=== PATIENT | male | born 1940 | race Caucasian/White ===

== ENCOUNTER 2021-04-07 16:51 | Inpatient (IN) ==
[2021-04-08] MEDS ORDERED: Acetaminophen 325 MG TABLET PO PRN (16:28)
[2021-04-08] MEDS ORDERED: D5% in Water 1,000 ML IVC PRN (17:14)
[2021-04-08] MEDS ORDERED: *HR* Dextrose 50 % in Water (Syg) 50 ML SYRINGE IVP PRN (17:14)
[2021-04-08] MEDS ORDERED: Dextrose Gel 15 GM/37.5 ML TUBE PO PRN ×2 (17:14)
[2021-04-08] MEDS: Acetaminophen 325 MG TABLET PO PRN (19:41)
[2021-04-08] MEDS: Metoprolol XL (24 HR) Succ 25 MG TAB.ER.24H PO SCH (19:41)
[2021-04-08] MEDS: Apixaban 5 MG TABLET PO SCH (19:42)
[2021-04-08] MEDS: Doxycycline 100 MG CAPSULE PO SCH (19:42)
[2021-04-08] MEDS: Insulin LISPRO 300 UNITS/3 ML VIAL SUBQ SCH (19:42)
[2021-04-08] MEDS: Insulin DETEMIR 100 UNIT/ML X5UNITS SUBQ SCH (19:42)
[2021-04-08] MEDS ORDERED: Insulin DETEMIR 100 UNIT/ML per UNIT SUBQ ONE (21:00)
[2021-04-09 06:07] LABS: Basophils % 0.4 %; Eosinophils # 0.3 K/mcL (0.0-0.6); Eosinophils % 3.6 %; Hematocrit 38.9 % (37.5-50.1); Hemoglobin 12.8 g/dL (12.9-16.9); Immature Granulocytes % 0.6 % (0-4); Lymphocytes # 2.6 K/mcL (0.6-4.6); Lymphocytes % 30.6 %; Mean Corpuscular HGB Conc 32.9 g/dL (31.6-35.5); Mean Corpuscular Hemoglobin 28.9 pg (28.0-33.3); Mean Corpuscular Volume 87.8 fL (83.0-100.0); Mean Platelet Volume 10.4 fL (9.4-12.4); Monocytes # 0.6 K/mcL (0.0-1.3); Monocytes % 6.8 %; Neutrophils # 4.9 K/mcL (1.6-8.9); Platelet Count 239 K/mcL (140-400); Red Blood Count 4.43 M/mcL (4.19-5.50); Red Cell Distribution Width 14.6 % (11.5-14.5); White Blood Count 8.5 K/mcL (4.3-11.1)
[2021-04-09 06:21] LABS: Albumin 3.1 g/dL (3.5-5.7); Albumin/Globulin Ratio 0.8 (1.1-2.2); Bilirubin,Total 0.8 mg/dL (0.3-1.0); Calcium 8.9 mg/dL (8.6-10.3); Globulin 3.8 g/dL (2.4-3.5); Potassium 4.3 mEq/L (3.5-5.1); Total Protein 6.9 g/dL (6.4-8.9)
[2021-04-09] MEDS: Apixaban 5 MG TABLET PO SCH ×2 (08:51→21:41)
[2021-04-09] MEDS: Finasteride 5 MG TABLET PO SCH (08:51)
[2021-04-09] MEDS: Doxycycline 100 MG CAPSULE PO SCH ×2 (08:51→21:40)
[2021-04-09] MEDS: Insulin LISPRO 300 UNITS/3 ML VIAL SUBQ SCH ×4 (08:51→21:47)
[2021-04-09] MEDS: Metoprolol XL (24 HR) Succ 25 MG TAB.ER.24H PO SCH ×2 (08:52→22:02)
[2021-04-09] MEDS: amLODIPine 5 MG TABLET PO SCH (08:52)
[2021-04-09] MEDS: *HR* Amiodarone 200 MG TABLET PO SCH (08:52)
[2021-04-09] MEDS: lisinopriL 20 MG TABLET PO SCH (08:52)
[2021-04-09] MEDS: Magnesium Oxide 400 MG TABLET PO SCH (08:52)
[2021-04-09] MEDS: Aspirin Enteric Coated 81 MG Tablet PO SCH (08:52)
[2021-04-09] MEDS: Torsemide 20 MG TABLET PO SCH ×2 (08:52→16:37)
[2021-04-09] MEDS: Acetaminophen 325 MG TABLET PO PRN ×2 (09:03→20:11)
[2021-04-09] MEDS: Insulin DETEMIR 100 UNIT/ML X5UNITS SUBQ SCH ×2 (09:04→21:45)
[2021-04-09 10:09] LABS: Chol/HDL Ratio 4.6 (0-4.9)
[2021-04-09 18:15] LABS: Estimated Average Glucose 226 mg/dl; Hemoglobin A1C 9.5 %
[2021-04-09] MEDS: Benzonatate 100 MG CAPSULE PO PRN (23:31)
[2021-04-10] MEDS: Doxycycline 100 MG CAPSULE PO SCH ×2 (08:02→21:19)
[2021-04-10] MEDS: Magnesium Oxide 400 MG TABLET PO SCH (08:03)
[2021-04-10] MEDS: Torsemide 20 MG TABLET PO SCH ×2 (08:03→17:44)
[2021-04-10] MEDS: *HR* Amiodarone 200 MG TABLET PO SCH (08:03)
[2021-04-10] MEDS: Aspirin Enteric Coated 81 MG Tablet PO SCH (08:03)
[2021-04-10] MEDS: Finasteride 5 MG TABLET PO SCH (08:04)
[2021-04-10] MEDS: Apixaban 5 MG TABLET PO SCH ×2 (08:04→21:17)
[2021-04-10] MEDS: Metoprolol XL (24 HR) Succ 25 MG TAB.ER.24H PO SCH ×2 (08:04→21:18)
[2021-04-10] MEDS: Insulin LISPRO 300 UNITS/3 ML VIAL SUBQ SCH ×4 (08:05→21:20)
[2021-04-10] MEDS: amLODIPine 5 MG TABLET PO SCH (08:05)
[2021-04-10] MEDS: Benzonatate 100 MG CAPSULE PO PRN ×2 (08:29→21:17)
[2021-04-10] MEDS: Insulin DETEMIR 100 UNIT/ML X5UNITS SUBQ SCH ×2 (08:30→21:20)
[2021-04-10] MEDS: lisinopriL 20 MG TABLET PO SCH (10:19)
[2021-04-10] MEDS: Acetaminophen 325 MG TABLET PO PRN (21:18)
[2021-04-11 04:48] LABS: Hematocrit 37.9 % (37.5-50.1); Hemoglobin 12.3 g/dL (12.9-16.9); Mean Corpuscular HGB Conc 32.5 g/dL (31.6-35.5); Mean Corpuscular Hemoglobin 28.7 pg (28.0-33.3); Mean Corpuscular Volume 88.3 fL (83.0-100.0); Mean Platelet Volume 10.8 fL (9.4-12.4); Platelet Count 235 K/mcL (140-400); Red Blood Count 4.29 M/mcL (4.19-5.50); Red Cell Distribution Width 14.6 % (11.5-14.5); White Blood Count 6.6 K/mcL (4.3-11.1)
[2021-04-11 05:03] LABS: Albumin/Globulin Ratio 0.9 (1.1-2.2); Bilirubin,Total 0.6 mg/dL (0.3-1.0); Calcium 8.9 mg/dL (8.6-10.3); Globulin 3.5 g/dL (2.4-3.5); Magnesium 1.8 mg/dL (1.6-2.6); Potassium 4.5 mEq/L (3.5-5.1); Total Protein 6.5 g/dL (6.4-8.9)
[2021-04-11] MEDS: Insulin LISPRO 300 UNITS/3 ML VIAL SUBQ SCH ×4 (08:57→20:31)
[2021-04-11] MEDS: Insulin DETEMIR 100 UNIT/ML X5UNITS SUBQ SCH ×2 (08:58→20:31)
[2021-04-11] MEDS: Metoprolol XL (24 HR) Succ 25 MG TAB.ER.24H PO SCH ×2 (08:59→20:29)
[2021-04-11] MEDS: Apixaban 5 MG TABLET PO SCH ×2 (08:59→20:29)
[2021-04-11] MEDS: *HR* Amiodarone 200 MG TABLET PO SCH (09:00)
[2021-04-11] MEDS: Finasteride 5 MG TABLET PO SCH (09:00)
[2021-04-11] MEDS: Magnesium Oxide 400 MG TABLET PO SCH (09:00)
[2021-04-11] MEDS: Torsemide 20 MG TABLET PO SCH ×2 (09:00→18:31)
[2021-04-11] MEDS: Doxycycline 100 MG CAPSULE PO SCH ×2 (09:00→20:28)
[2021-04-11] MEDS: lisinopriL 20 MG TABLET PO SCH (09:01)
[2021-04-11] MEDS: Aspirin Enteric Coated 81 MG Tablet PO SCH (09:04)
[2021-04-11] MEDS: Benzonatate 100 MG CAPSULE PO PRN ×2 (09:16→18:31)
[2021-04-11] MEDS: amLODIPine 5 MG TABLET PO SCH (11:10)
[2021-04-11] MEDS: Acetaminophen 325 MG TABLET PO PRN (20:29)
[2021-04-12] MEDS: *HR* Amiodarone 200 MG TABLET PO SCH (09:11)
[2021-04-12] MEDS: Acetaminophen 325 MG TABLET PO PRN ×2 (09:11→21:22)
[2021-04-12] MEDS: Finasteride 5 MG TABLET PO SCH (09:11)
[2021-04-12] MEDS: Metoprolol XL (24 HR) Succ 25 MG TAB.ER.24H PO SCH ×2 (09:11→21:22)
[2021-04-12] MEDS: Magnesium Oxide 400 MG TABLET PO SCH (09:11)
[2021-04-12] MEDS: Aspirin Enteric Coated 81 MG Tablet PO SCH (09:11)
[2021-04-12] MEDS: amLODIPine 5 MG TABLET PO SCH (09:11)
[2021-04-12] MEDS: lisinopriL 20 MG TABLET PO SCH (09:11)
[2021-04-12] MEDS: Apixaban 5 MG TABLET PO SCH ×2 (09:11→21:22)
[2021-04-12] MEDS: Doxycycline 100 MG CAPSULE PO SCH ×2 (09:12→21:22)
[2021-04-12] MEDS: Insulin DETEMIR 100 UNIT/ML X5UNITS SUBQ SCH ×2 (09:12→21:24)
[2021-04-12] MEDS: Torsemide 20 MG TABLET PO SCH ×2 (09:12→17:41)
[2021-04-12] MEDS: Insulin LISPRO 300 UNITS/3 ML VIAL SUBQ SCH ×4 (09:14→21:23)
[2021-04-12] MEDS: Benzonatate 100 MG CAPSULE PO PRN (21:22)
[2021-04-13] MEDS: Melatonin 3 MG TABLET PO PRN ×2 (00:54→21:38)
[2021-04-13 08:11] LABS: Hematocrit 36.6 % (37.5-50.1); Hemoglobin 11.9 g/dL (12.9-16.9); Mean Corpuscular HGB Conc 32.5 g/dL (31.6-35.5); Mean Corpuscular Hemoglobin 28.8 pg (28.0-33.3); Mean Corpuscular Volume 88.6 fL (83.0-100.0); Mean Platelet Volume 10.5 fL (9.4-12.4); Platelet Count 263 K/mcL (140-400); Red Blood Count 4.13 M/mcL (4.19-5.50); Red Cell Distribution Width 14.6 % (11.5-14.5); White Blood Count 7.2 K/mcL (4.3-11.1)
[2021-04-13] MEDS: Doxycycline 100 MG CAPSULE PO SCH ×2 (08:18→21:38)
[2021-04-13] MEDS: Benzonatate 100 MG CAPSULE PO PRN ×2 (08:19→21:38)
[2021-04-13] MEDS: Magnesium Oxide 400 MG TABLET PO SCH (08:19)
[2021-04-13] MEDS: Finasteride 5 MG TABLET PO SCH (08:19)
[2021-04-13] MEDS: Aspirin Enteric Coated 81 MG Tablet PO SCH (08:19)
[2021-04-13] MEDS: amLODIPine 5 MG TABLET PO SCH (08:19)
[2021-04-13] MEDS: lisinopriL 20 MG TABLET PO SCH (08:19)
[2021-04-13] MEDS: Torsemide 20 MG TABLET PO SCH ×2 (08:19→17:53)
[2021-04-13] MEDS: Acetaminophen 325 MG TABLET PO PRN ×2 (08:19→21:37)
[2021-04-13] MEDS: Furosemide 20 MG TABLET PO SCH (08:19)
[2021-04-13] MEDS: Apixaban 5 MG TABLET PO SCH ×2 (08:19→21:38)
[2021-04-13] MEDS: Metoprolol XL (24 HR) Succ 25 MG TAB.ER.24H PO SCH ×2 (08:20→21:39)
[2021-04-13] MEDS: *HR* Amiodarone 200 MG TABLET PO SCH (08:20)
[2021-04-13] MEDS: Insulin LISPRO 300 UNITS/3 ML VIAL SUBQ SCH ×4 (08:21→21:35)
[2021-04-13 08:40] LABS: Albumin 3.1 g/dL (3.5-5.7); Albumin/Globulin Ratio 0.9 (1.1-2.2); Bilirubin,Total 0.8 mg/dL (0.3-1.0); Calcium 9.2 mg/dL (8.6-10.3); Globulin 3.4 g/dL (2.4-3.5); Magnesium 1.6 mg/dL (1.6-2.6); Potassium 4.4 mEq/L (3.5-5.1); Total Protein 6.5 g/dL (6.4-8.9)
[2021-04-13] MEDS ORDERED: Torsemide 20 MG TABLET PO ONE (09:49)
[2021-04-13] MEDS: Insulin DETEMIR 100 UNIT/ML X5UNITS SUBQ SCH ×2 (10:52→21:40)
[2021-04-14] MEDS ORDERED: *HR* HYDROcodone/Acet 5/325 mg TABLET PO ONE (01:15)
[2021-04-14 07:52] VITALS: BP 107/70; PULSE 78; RESP 19; TEMP 98.5; O2SAT 94
[2021-04-14] MEDS: Doxycycline 100 MG CAPSULE PO SCH (10:02)
[2021-04-14] MEDS: Acetaminophen 325 MG TABLET PO PRN (10:02)
[2021-04-14] MEDS: amLODIPine 5 MG TABLET PO SCH (10:02)
[2021-04-14] MEDS: *HR* Amiodarone 200 MG TABLET PO SCH (10:02)
[2021-04-14] MEDS: lisinopriL 20 MG TABLET PO SCH (10:02)
[2021-04-14] MEDS: Torsemide 20 MG TABLET PO SCH (10:03)
[2021-04-14] MEDS: Furosemide 20 MG TABLET PO SCH (10:03)
[2021-04-14] MEDS: Magnesium Oxide 400 MG TABLET PO SCH (10:03)
[2021-04-14] MEDS: Benzonatate 100 MG CAPSULE PO PRN (10:03)
[2021-04-14] MEDS: Aspirin Enteric Coated 81 MG Tablet PO SCH (10:03)
[2021-04-14] MEDS: Apixaban 5 MG TABLET PO SCH (10:03)
[2021-04-14] MEDS: Finasteride 5 MG TABLET PO SCH (10:03)
[2021-04-14] MEDS: Insulin LISPRO 300 UNITS/3 ML VIAL SUBQ SCH ×2 (10:08→14:31)
[2021-04-14] MEDS: Insulin DETEMIR 100 UNIT/ML X5UNITS SUBQ SCH (10:09)
[2021-04-14] MEDS: Metoprolol XL (24 HR) Succ 25 MG TAB.ER.24H PO SCH (13:50)
== END 2021-04-14 14:35 | disposition home health service (06) | DRG 291 ==
LOC: INPGRE 04-08 16:59
PROVIDERS: ADMIT Family Medicine; ATTEND Family Medicine